=== PATIENT | male | born 1955 | race Caucasian/White ===

== ENCOUNTER 2019-04-12 08:45 | Outpatient (CLI) | payer BC ==
[2019-04-12] MEDS ORDERED: TRIAMCINOLONE ACETONIDE 40 MG/ML 1 ML VIAL INTRAARTIC ONE (09:15)
[2019-04-12] MEDS ORDERED: BUPIVACAINE (PF) 0.25% 30 ML VIAL MISCELLANE ONE (09:15)
[2019-04-12 09:32] VITALS: RESP 16; TEMP 97.6
[2019-04-12 09:47] LABS: Glucose,Whole Blood 118 mg/dL (75-99)
[2019-04-12 10:44] VITALS: BP 143/79; PULSE 76
--- NOTE | 2019-04-12 11:32 | US ---
Ultrasound guided injection of the left hip Date: 04/12/2019 History: 64-year-old male with hip arthritis and pain for 2 1/2 months. Procedure: 1. Ultrasound of the left hip 2. Injection of Kenalog and Bupivacaine with ultrasound guidance. Technique: The procedure, risks, and alternatives, were discussed with the patient, who requested cody t we proceed. The consent form was signed, and teach-back occurred. The site/side of the procedure wa s marked with a line with participation by the patient. The accompanying paperwork was verified for c onsistency. A directed history and physical exam was performed prior to the procedure. Medication rec onciliation was performed by ancillary personnel. A critical pause was performed with assisting laureen kelly just prior to the procedure and the patient's identity was confirmed using 2 identifiers. Imagin g guidance was utilized to select the precise skin entry point just prior to the procedure. The left hip was prepped and draped in the usual sterile fashion and local 1% lidocaine anesthesia wa s instilled. Under ultrasound guidance, an 18 gauge spinal needle was introduced into the left hip héctor int. Ultrasound confirmed the position of the needle tip. Under ultrasound surveillance, 1 mL of Linda log-40 and 3 mL of 0.25% bupivacaine were injected into the left hip from single dose vials. An addit ional 2 mL of bupivacaine was injected along the needle tract as the needle was removed. The patient tolerated the procedure well. A post-procedure note was placed into the medical record. There were no immediate complications. Afte r the procedure, the patient's condition was unchanged. Estimated blood loss was minimal. The patient was instructed on routine postprocedure precautions including monitoring signs of infection. IMPRESSION: Successful ultrasound guided injection of the left hip (40 mg Kenalog and 3 mL 0.25% Bupivacaine) wit hout immediate complication.
== END 2019-04-12 10:42 | disposition home or self-care (01) ==
LOC: RADUSMAIN 08:45
PROVIDERS: ATTEND Orthopaedic Surgery Sports Medicine
DX: M87.052 Idiopathic aseptic necrosis of left femur (principal)
CPT/HCPCS: 20611; J3301